=== PATIENT | female | born 1985 | race African-American/Black ===

== ENCOUNTER 2022-06-13 13:13 | Emergency (ER) | payer BC ==
[~2022-06-13] VITALS: Ht 157.5 cm; Wt 75.0 kg
[2022-06-13 13:29] VITALS: BP 121/70
[2022-06-13] MEDS ORDERED: ACETAMINOPHEN 325MG TABLET PO ONE (15:45)
[2022-06-13] MEDS ORDERED: IBUPROFEN 400MG TABLET PO ONE (15:45)
== END 2022-06-13 17:07 | disposition home or self-care (01) ==
LOC: ER 13:13
DX: R07.89 Other chest pain (principal); R51.9 Headache, unspecified
CPT/HCPCS: 71045; 81025; 93005; 99283

== ENCOUNTER 2023-11-13 20:04 | Emergency (ER) | payer BC ==
[~2023-11-13] VITALS: Ht 157.5 cm; Wt 65.0 kg
[2023-11-13 20:05] VITALS: TEMP 98.5; O2SAT 100
[2023-11-13 21:00] VITALS: BP 153/80; PULSE 86; RESP 15
[2023-11-13] MEDS: KETOROLAC 30MG/ML VIAL IM ONE (21:00)
[2023-11-13] MEDS: MAGNESIUM/ALUMINUM HYDROXIDE/SIMETHICONE 30ML UDC PO ONE (21:00)
[2023-11-13 21:52] LABS: HEMATOCRIT 37.3 % (36.0-48.0); HEMOGLOBIN 12.4 g/dL (12.0-16.0); MEAN CORPUSCULAR HEMOGLOBIN 31.1 pg (28.0-32.0); MEAN CORPUSCULAR HGB CONC 33.3 g/dL (31.0-37.0); MEAN CORPUSCULAR VOLUME 93.3 fL (81.0-99.0); PLATELET 243 x1000/uL (130-400); RED BLOOD CELL COUNT 3.99 mill/uL (4.2-5.4); RED CELL DISTRIBUTION WIDTH 12.7 % (11.6-14.6); WHITE BLOOD COUNT 4.1 x1000/uL (4.5-11.0)
[2023-11-13 22:00] LABS: CARBON DIOXIDE 27 mEq/L (21-32); CHLORIDE 105 mEq/L (98-107); SODIUM 138 mEq/L (136-145)
[2023-11-13 22:01] LABS: CALCIUM 8.9 mg/dL (8.7-10.4)
[2023-11-13 22:03] LABS: HCG SCREEN NEGATIVE
[2023-11-13 22:05] LABS: CREATININE 0.9 mg/dL (0.6-1.0)
[2023-11-13 22:06] LABS: GLUCOSE 102 mg/dL (70-105); UREA NITROGEN BLOOD 15 mg/dL (9-23)
[2023-11-13 22:07] LABS: ALANINE AMINOTRANSFERASE 13 IU/L (10-49); ALBUMIN 4.3 g/dL (3.2-4.8); ASPARTATE AMINOTRANSFERASE 14 IU/L (<34)
[2023-11-13 22:08] LABS: BILIRUBIN DIRECT 0.1 mg/dL (<=3.0); BILIRUBIN TOTAL 0.4 mg/dL (0.1-1.0); PROTEIN TOTAL 7.5 g/dL (6.0-8.3); TROPONIN I HIGH SENSITIVITY < 4 ng/L (3.0-34)
[2023-11-13] MEDS ORDERED: TOPUD PO (23:42)
[2023-11-13] MEDS ORDERED: MAG355OR21 MT (23:42)
[2023-11-14] MEDS: MAGNESIUM/ALUMINUM HYDROXIDE/SIMETHICONE 30ML UDC PO NR (00:18)
[2023-11-14] MEDS: KETOROLAC 30MG/ML VIAL IM NR (00:18)
== END 2023-11-14 00:17 | disposition home or self-care (01) ==
LOC: ER 20:04
DX: R07.89 Other chest pain (principal)
CPT/HCPCS: 99285; 71046; 80076; 80048; 84703; 83690; 85027; 84484; 36415; 93005; 96372; J1885